=== PATIENT | male | born 1970 | race Caucasian/White ===

== ENCOUNTER 2021-06-26 12:39 | Emergency (ER) | payer OTHER, SELFPAY ==
[2021-06-26 13:00] VITALS: BP 150/83; PULSE 94; RESP 20; TEMP 36.9; O2SAT 98
--- NOTE | 2021-06-26 13:22 | ED.GENADULT ---
HPI - General Adult General Chief complaint: Extremity Injury, Upper Stated complaint: finger inf Time Seen by Provider: 06/26/21 13:38 Source: patient and family History of Present Illness HPI narrative: Patient presents with a worsening wound to his right ring finger. Patient was started on doxycycline by his primary care provider 4 days ago. Patient has been soaking the area and Epson salt soaks and the area has gotten larger and is worsening and has some drainage. Patient states that the redness and the streaking have since improved after he started the doxycycline. But the area has opened up and the wound has become larger. Related Data Home Medications Medication Instructions Recorded Confirmed atorvastatin 06/26/21 etodolac mg 06/26/21 olmesartan 06/26/21 semaglutide [Rybelsus] mg PO 06/26/21 tramadol mg 06/26/21 Allergies Allergy/AdvReac Type Severity Reaction Status Date / Time No Known Allergies Allergy Verified 06/26/21 13:12 Review of Systems Review of Systems: CONSTITUTIONAL: Denies fever, chills, or sweats. EYES: Denies visual changes, redness, or discharge. ENT: Denies rhinorrhea, congestion, sore throat, or otalgia. CARDIOVASCULAR: Denies chest pain, palpitations, or edema. RESPIRATORY: Denies cough or dyspnea. GASTROINTESTINAL: Denies abdominal pain, nausea, vomiting, or diarrhea. GENITOURINARY: Denies dysuria or hematuria. SKIN: Denies rash or itching. MUSCULOSKELETAL: Denies back pain, joint pain, or myalgia. NEUROLOGIC: Denies headache, numbness, or weakness. PSYCHIATRIC: Denies anxiety or depression. Area was PMFSH Comments At time of signature, agree with nursing past medical, surgical, social and family history. There is no relevant family history pertinent to the presenting complaint Exam Narrative: GENERAL: Well-appearing, well-nourished, and in no acute distress. HEAD: Normocephalic, atraumatic. EYES: PERRLA and EOMI. ENT: Nares clear, no rhinorrhea or epistaxis. Mucous membranes moist. NECK: Supple. CHEST: Clear to auscultation. No respiratory distress. HEART: Regular rate and rhythm. No murmur heard. Normal peripheral pulses. ABDOMEN: Soft, nontender, nondistended, normal active bowel sounds. EXTREMITIES: Normal range of motion. No edema. SKIN: Warm, dry, no rash. 4.5 cm x 3 cm open area with purulent drainage to right ring finger. No necrotic tissue noted no fluctuance no indication for I&D 14 cm of redness to hand. Patient states that the redness and streaking have since improved since he started on the doxycycline 5 days ago NEURO: No focal deficits. Alert and oriented x3. Vivian Coma Scale Eye Opening: Spontaneous 4 [place] Coma Scale Motor: Obeys Commands 6 [place] Coma Scale Verbal: Oriented 5 [place] Coma Scale Total 15 Course Course Level of Care: Express Care Visit Vital Signs Vital signs: Vital Signs Temperature 36.9 C 06/26/21 13:00 Pulse Rate 94 06/26/21 13:00 Respiratory Rate 20 06/26/21 13:00 Blood Pressure 150/83 H 06/26/21 13:00 Pulse Oximetry 98 06/26/21 13:00 Temperature 36.9 C 06/26/21 13:00 Pulse Rate 94 06/26/21 13:00 Respiratory Rate 20 06/26/21 13:00 Blood Pressure 150/83 H 06/26/21 13:00 Pulse Oximetry 98 06/26/21 13:00 My elevated blood pressure Please KIMO schedule a followup visit with your personal physician for further evaluation and treatment. Including recheck and discussion of your blood pressure. If your symptoms persist, change or worsen significantly before you can contact your personal physician then please, without delay, go to the emergency department for further evaluation Critical dx considered and discussed with pt. Educated patient on red flag s/s and to go to ED if s/s occur. Discussed with pt when to return to Express [facility] or primary care provider. Pt gave verbal undertstanding, all questions were answered, and pt was agreeable to plan Discussed red flags and when to go to ER. Instructed
[2021-06-26] MEDS: cefTRIAXone 1 GM, LIDOCAINE HCL 1% LOCAL INJ 2.1 ML IM (13:30)
== END 2021-06-26 13:50 | disposition home or self-care (01) ==
PROVIDERS: Emergency Provider Nurse Practitioner Family
DX: L03.011 Cellulitis of right finger (principal); L02.511 Cutaneous abscess of right hand; I11.0 Hypertensive heart disease with heart failure; I50.9 Heart failure, unspecified; E78.00 Pure hypercholesterolemia, unspecified; Z90.2 Acquired absence of lung [part of]; M19.90 Unspecified osteoarthritis, unspecified site
CPT/HCPCS: 87070; 87147; 87186; 87205; 96372; 99213; G0463; J0696